=== PATIENT | female | born 1980 | race Caucasian/White ===

== ENCOUNTER → 2021-12-06 | Outpatient (CLI) | payer BC ==
[~2021-12-06] MED LIST: NEXIUM20 MG PO; NORETHINDRONE0.35 MG PO
[2021-12-06 12:02] LABS: HEMOGLOBIN 14.8 gm/dl (12.3-15.3); RED BLOOD COUNT 4.86 M/UL (4.00-5.10); WHITE BLOOD COUNT 14.8 K/UL (4.5-11.0)
[2021-12-06 12:29] LABS: BUN/CREATININE RATIO 14 (0-10)
== END ==
LOC: OPSV2 10:00
PROVIDERS: Anesthesiology; Obstetrics & Gynecology
DX: Z01.812 Encounter for preprocedural laboratory examination (principal); N92.0 Excessive and frequent menstruation with regular cycle
CPT/HCPCS: 80048; 81001; 85025; 93005

== ENCOUNTER → 2021-12-16 | Day surgery (SDC) | payer BC ==
[~2021-12-16] MED LIST changes: +HYDROCODON-ACE1 EAC6 PO; +IBUPROFEN600 MG PO
== END | disposition home or self-care (01) ==
LOC: OR 08:34
DX: N92.0 Excessive and frequent menstruation with regular cycle (principal); N94.6 Dysmenorrhea, unspecified; F17.290 Nicotine dependence, other tobacco product, uncomplicated
CPT/HCPCS: J1100; J1885; J2001; J2250; J2405; J2704; J2795; J3010